=== PATIENT | male | born 1965 | race Caucasian/White ===

== ENCOUNTER 2022-04-21 08:30 | Inpatient (IN) | payer OTHER ==
[2022-04-12 13:40] VITALS: BMI 23.7
[~2022-04-21 08:30] MED LIST: VANCOMYCIN 1,000 MG VIAL (RESTRICTED TO ID ONLY) IVPB ONE
[2022-04-21] MEDS ORDERED: VANCOMYCIN 1,000 MG in DEXTROSE 5%-WATER - 250 ML IVPB ONE (10:15)
[2022-04-21] MEDS ORDERED: TRANEXAMIC ACID 1000 MG/10 ML VIAL IVPUSH ONE (11:15)
[2022-04-21] MEDS ORDERED: VANCOMYCIN 1,000 MG VIAL (RESTRICTED TO ID ONLY) ONE ×2 (11:38→12:06)
[2022-04-21] MEDS ORDERED: ONDANSETRON 4 MG/2 ML VIAL ONE (11:38)
[2022-04-21] MEDS ORDERED: PROPOFOL 20 ML ONE ×2 (11:38→15:46)
[2022-04-21] MEDS ORDERED: DEXAMETHASONE SOD PHOSPHATE 4 MG/1 ML VIAL ONE (11:38)
[2022-04-21] MEDS ORDERED: TRANEXAMIC ACID 1000 MG/10 ML VIAL ONE ×2 (11:38→15:23)
[2022-04-21] MEDS ORDERED: ACETAMINOPHEN 325 MG TABLET (FP) PO PRN (12:24)
[2022-04-21] MEDS ORDERED: ONDANSETRON 4 MG/2 ML VIAL IVPUSH PRN ×2 (12:24→13:01)
[2022-04-21] MEDS ORDERED: LACTATED RINGERS SOLUTION 1,000 ML IV SCH ×2 (12:30→13:15)
[2022-04-21] MEDS ORDERED: MIDAZOLAM HCL 2 MG/2 ML SINGLE DOSE VIAL ONE (12:53)
[2022-04-21] MEDS ORDERED: BUPIVACAINE HCL/PF 0.5% (5MG/ML) 10 ML VIAL ONE ×2 (12:53→12:57)
[2022-04-21] MEDS ORDERED: MAG HYDROX/AL HYDROX/SIMETH 30 ML UNIT-DOSE CUP PO PRN (13:01)
[2022-04-21] MEDS ORDERED: ACETAMINOPHEN INJECTION 100 ML IVPB ONE (13:15)
[2022-04-21] MEDS ORDERED: ceFAZolin SODIUM 1 GM VIAL ONE ×2 (13:50)
[2022-04-21] MEDS ORDERED: PROPOFOL 40 ML ONE (14:02)
[2022-04-21] MEDS ORDERED: VANCOMYCIN 1,000 MG VIAL (RESTRICTED TO ID ONLY) IVPB ONE ×2 (14:33→15:35)
[2022-04-21] MEDS ORDERED: BUPIVICAINE 0.25%/MORPH PF/KETOROLAC - 51ML DISP.SYRINGE IA ONE (15:04)
[2022-04-21] MEDS ORDERED: KETOROLAC TROMETHAMINE 30 MG/1 ML VIAL IM ONE (15:48)
[2022-04-21] MEDS ORDERED: morphine SULFATE/PF 1 MG/2 ML (2cc Syringe - QUVA) IV ONE (15:48)
[2022-04-21] MEDS ORDERED: BUPIVACAINE HCL/PF 0.25% (2.5MG/ML) 10 ML VIAL IJ ONE (15:48)
[2022-04-21] MEDS ORDERED: CEFAZOLIN SODIUM 2 GM in DEXTROSE 5%-WATER 100 ML IVPB SCH (18:00)
[2022-04-21] MEDS: ASCORBIC ACID 500 MG TABLET (FP) PO SCH (22:29)
[2022-04-21] MEDS: ASPIRIN 325 MG TABLET PO SCH (22:29)
[2022-04-21] MEDS: SENNOSIDES/DOCUSATE COMBO (SENNA PLUS) TABLET (UD) PO SCH (22:29)
[2022-04-21] MEDS: CEFAZOLIN SODIUM 2 GM in DEXTROSE 5%-WATER 100 ML IVPB SCH (22:30)
[2022-04-21 22:49] VITALS: RESP 18
[2022-04-21] MEDS: oxyCODONE HCL 5 MG TABLET PO PRN (23:50)
[2022-04-22] MEDS: CEFAZOLIN SODIUM 2 GM in DEXTROSE 5%-WATER 100 ML IVPB SCH (06:14)
[2022-04-22 06:36] VITALS: BP 114/71; PULSE 100; TEMP 98.5
[2022-04-22] MEDS: oxyCODONE HCL 5 MG TABLET PO PRN ×3 (07:03→14:39)
[2022-04-22 09:12] LABS: CALCIUM 8.7 mg/dl (8.5-10); CREATININE 0.9 mg/dl (0.55-1.3)
[2022-04-22 09:38] LABS: HEMATOCRIT 36.8 % (35.4-49); HEMOGLOBIN 12.8 G/dL (11.7-16.9); MCH 31.4 pg (25.7-33.7); MCHC 34.8 g/dl (32.0-35.9); MEAN CELL VOLUME 90.3 fl (80-96); MEAN PLT VOLUME 9.4 fl (7.5-11.1); PLATELET COUNT 185.9 10^3/uL (134-434); RBC 4.08 10^6/uL (4.00-5.60); RDW 13.9 % (11.9-15.9); WHITE BLOOD COUNT 15.4 10^3/uL (4.0-10.8)
[2022-04-22] MEDS ORDERED: PANTOPRAZOLE 40 MG TABLET PO SCH (10:00)
[2022-04-22] MEDS ORDERED: MULTIVITAMINS (DAILY MVI) TABLET (FP) PO SCH (10:00)
[2022-04-22] MEDS: ASCORBIC ACID 500 MG TABLET (FP) PO SCH (10:15)
[2022-04-22] MEDS: ASPIRIN 325 MG TABLET PO SCH (10:15)
[2022-04-22] MEDS: SENNOSIDES/DOCUSATE COMBO (SENNA PLUS) TABLET (UD) PO SCH (10:15)
== END 2022-04-22 15:25 | disposition home health service (06) | DRG 301 ==
LOC: EDSTATUS 08:30 → FM/S 09:03
PROVIDERS: ADMIT Internal Medicine; ATTEND Orthopaedic Surgery Sports Medicine
PROC: 8E0Y0CZ Robotic Assisted Procedure of Lower Extremity, Open Approach (ICD-10-PCS; 2022-04-21)
PROC: 0SR90JZ Replacement of Right Hip Joint with Synthetic Substitute, Open Approach (ICD-10-PCS; principal; 2022-04-21 14:05)
DX: M16.11 Unilateral primary osteoarthritis, right hip (principal)
CPT/HCPCS: 36415; 73502-TC-RT-FY; 80048; 85027; 88305-TC; 88311-TC; 94760; 97010-GP; 97116-GP; 97162-GP; C1713; C1776; C9803-CS; U0003; U0005